=== PATIENT | female | born 1950 | race American Indian/Alaskan Native ===

== ENCOUNTER 2020-02-01 11:03 | Day surgery (SDC) | payer MEDICARE, OTHER ==
[~2020-02-01 11:03] MED LIST: Lactated Ringers 1,000 ML IV SCH; Lidocaine 2% 5 ML SDV ONE; Midazolam 1 MG/ML 2 ML SDV ONE; Propofol 200 MG/20 ML SDV ONE; Sodium Chloride 0.9% 10 ML SDV IV PRN; Sodium Chloride 0.9% 10 ML Syringe FLUSH PRN; Sodium Chloride 0.9% 2.5 ML Syringe FLUSH PRN; fentaNYL 100 MCG/2 ML SDV ONE
--- NOTE | 2020-02-01 13:18 | PCM.PREANE ---
Preanesthetic Assessment - Anesthesia/Transfusion/Family Hx Anesthesia History: Prior Anesthesia Without Reaction Family History of Anesthesia Reaction: No Transfusion History: No Prior Transfusion(s) - Review of Systems General: No Symptoms Pulmonary: No Symptoms Cardiovascular: No Symptoms Gastrointestinal: No Symptoms Neurological: No Symptoms Other: Reports: None - Physical Assessment NPO Status Date: 02/01/20 NPO Status Time: 08:30 Vital Signs: Last Vital Signs Temp 97.7 F 02/01/20 12:45 Pulse 93 02/01/20 12:45 Resp 16 02/01/20 12:45 BP 121/62 02/01/20 12:45 Pulse Ox 92 L 02/01/20 12:45 Height: 5 ft 4 in Weight: 56.245 kg ASA Class: 2 Mental Status: Alert & Oriented x3 Airway Class: Mallampati = 2 Dentition: Reports: Normal Dentition, Partial, Broken Tooth/Teeth, Missing Tooth/Teeth ROM/Head Extension: Full Lungs: Clear to Auscultation, Normal Respiratory Effort Cardiovascular: Regular Rate, Regular Rhythm - Lab Values: Laboratory Last Values SARS Virus RNA (PCR) NEGATIVE (NEGATIVE) 02/01/20 11:08 - Allergies Allergies/Adverse Reactions: Allergies Allergy/AdvReac Type Severity Reaction Status Date / Time Penicillins Allergy Hives Verified 01/26/20 14:41 - Blood Blood Available: No - Acknowledgements Anesthesia Type Planned: General Anesthesia (tiva) Pt an Appropriate Candidate for the Planned Anesthesia: Yes Alternatives and Risks of Anesthesia Discussed w Pt/Guardian: Yes Pt/Guardian Understands and Agrees with Anesthesia Plan: Yes PreAnesthesia Questionnaire HEENT History: Reports: Other (See Below) Other HEENT History: wears glasses, has upper partial removal denture Gastrointestinal History: Reports: Cholelithiasis, GERD, Helicobacter Pylori Musculoskeletal History: Reports: Fracture, Neck Pain, Chronic Other Musculoskeletal History: hx of fx wrist Neurological History: Reports: Vertigo, Other (See Below) Other Neuro History: hx of motion sickness Psychiatric History: Reports: Anxiety - Past Surgical History Head Surgeries/Procedures: Reports: None GI Surgical History: Reports: Cholecystectomy - SUBSTANCE USE Smoking Status *Q: Never Smoker Recreational Drug Use History: No - HOME MEDS Home Medications: Home Meds Lactobacillus Acidophilus [Probiotic] 1 cap PO DAILY 01/26/20 [History] Multivitamin 1 tab PO DAILY 01/26/20 [History] Omeprazole 20 mg PO DAILY 01/26/20 [History] - CURRENT (IN HOUSE) MEDS Current Meds: Current Medications Lactated Ringer's (Ringers, Lactated) 1,000 mls @ 125 mls/hr IV ASDIRECTED JÚNIOR Last Admin: 02/01/20 13:06 Dose: 125 mls/hr Documented by: Sodium Chloride (Saline Flush) 10 ml FLUSH ASDIRECTED PRN PRN Reason: Keep Vein Open Sodium Chloride (Saline Flush) 2.5 ml FLUSH ASDIRECTED PRN PRN Reason: Keep Vein Open Sodium Chloride (Saline Flush) 10 ml FLUSH ASDIRECTED PRN PRN Reason: Keep Vein Open Sodium Chloride (Saline Flush) 2.5 ml FLUSH ASDIRECTED PRN PRN Reason: Keep Vein Open Sodium Chloride (Normal Saline) 10 ml IV ASDIRECTED PRN PRN Reason: IV Use Discontinued Medications Fentanyl (Sublimaze) Confirm Administered Dose 100 mcg .ROUTE .STK-MED ONE Stop: 02/01/20 09:56 Lidocaine (Xylocaine-Mpf 2%) Confirm Administered Dose 5 ml .ROUTE .STK-MED ONE Stop: 02/01/20 09:56 Midazolam HCl (Versed 1 Mg/Ml) Confirm Administered Dose 2 mg .ROUTE .STK-MED ONE Stop: 02/01/20 09:56 Propofol (Diprivan 20 Ml) Confirm Administered Dose 400 mg .ROUTE .STK-MED ONE Stop: 02/01/20 09:56
[2020-02-01] MEDS ORDERED: Propofol 200 MG/20 ML SDV ONE (13:32)
--- NOTE | 2020-02-01 14:03 | PCM.OPNOTE ---
- General Post-Op/Procedure Note Date of Surgery/Procedure: 02/01/20 Operative Procedure(s): Diagnostic EGD and colonoscopy Findings: acute gastritis, ascending colon polyp x 3, transverse colon polyp x 2, sigmoid colon polyp x 1 Pre Op Diagnosis: Abdominal pain, history of H pylori infection, change in bowel habits Post-Op Diagnosis: acute gastritis, ascending colon polyp x 3, transverse colon polyp x 2, sigmoid colon polyp x 1 Anesthesia Technique: MEGAN Primary Surgeon: Bing Stanley Condition: Good
--- NOTE | 2020-02-01 14:14 | PCM.POSTAN ---
POST ANESTHESIA ASSESSMENT - MENTAL STATUS Mental Status: Alert, Oriented - VITAL SIGNS Vital Signs: Last Vital Signs Temp 97.0 F 02/01/20 13:53 Pulse 81 02/01/20 14:10 Resp 20 02/01/20 14:10 BP 102/55 L 02/01/20 14:10 Pulse Ox 97 02/01/20 14:10 - RESPIRATORY Respiratory Status: Respiratory Rate WNL, Airway Patent, O2 Saturation Stable - CARDIOVASCULAR CV Status: Pulse Rate WNL, Blood Pressure Stable - GASTROINTESTINAL GI Status: No Symptoms - POST OP HYDRATION Hydration Status: Adequate & Stable
--- NOTE | 2020-02-01 14:29 | PCM48HPAN ---
Post Anesthesia Note - EVALUATION WITHIN 48HRS OF ANESTHETIC Vital Signs in Normal Range: Yes Patient Participated in Evaluation: Yes Respiratory Function Stable: Yes Airway Patent: Yes Cardiovascular Function Stable: Yes Hydration Status Stable: Yes Pain Control Satisfactory: Yes Nausea and Vomiting Control Satisfactory: Yes Mental Status Recovered: Yes Vital Signs: Last Vital Signs Temp 97.0 F 02/01/20 13:53 Pulse 81 02/01/20 14:10 Resp 20 02/01/20 14:10 BP 102/55 L 02/01/20 14:10 Pulse Ox 97 02/01/20 14:10
--- NOTE | 2020-02-01 20:43 | OR ---
SURGEON: BING STANLEY MD DATE OF PROCEDURE: 02/01/2020 PREOPERATIVE DIAGNOSES: History of Helicobacter pylori, abdominal pain, change in bowel habits. POSTOPERATIVE DIAGNOSES: 1. Acute gastritis. 2. Ascending colon polyps x3. 3. Transverse colon polyps x2. 4. Sigmoid colon polyp x1. PROCEDURE PERFORMED: Diagnostic esophagogastroduodenoscopy and colonoscopy. PRIMARY SURGEON: Bing Stanley MD ANESTHESIA: MAC. INSTRUMENT USED: Olympus endoscope and colonoscope. EXTENT OF EXAM: To the second portion of duodenum, to the cecum. PREPARATION: Good. LIMITATIONS: None. INDICATIONS FOR EXAMINATION: The patient is a 70-year-old female who was recently diagnosed with H. pylori. She was given antibiotic courses two separate times, but did not perform them as instructed. The patient recently had a repeat stool antigen test that came back positive. She continues to have abdominal pain and has noted changes in her bowel habits. I explained the need for diagnostic EGD and colonoscopy. The patient and I discussed the procedure; expected perioperative course; and the risks including bleeding, infection, or damage to surrounding structures including perforation. She verbalized understanding and wishes to proceed. PROCEDURE IN DETAIL: The patient was brought into the endoscopy suite and placed in the left lateral decubitus position. A time-out was completed verifying the patient's name, age, date of , allergies, and procedure to be performed. Monitored anesthesia care was induced and continuous oxygen was provided via nasal cannula throughout the procedure. A bite block was placed in the patient's mouth. After adequate sedation was achieved, a well-lubricated endoscope was placed in the patient's mouth and advanced under direct visualization to the second portion of duodenum. This appeared normal and a photograph was taken. The scope was then fully withdrawn while examining the upper GI tract. The patient had no evidence of ulcers within the duodenum. There was some mild irritation at the level of the pylorus. Once the scope was brought into the stomach, I took a photograph of the pylorus and GE junction, which appeared structurally normal. The gastric mucosa appeared acutely and chronically inflamed. There was no evidence of ulceration or bleeding. Biopsies were taken of the gastric antrum, body, and fundus and sent for histologic review and H. pylori testing. The scope was brought into the distal esophagus. The Z-line appeared normal. A biopsy was taken of the distal esophageal mucosa 1 cm above the Z-line. The remainder of the esophagus appeared normal. The scope was removed and this portion of the procedure terminated. A digital rectal exam was performed. This exam was within normal limits. A well-lubricated colonoscope was inserted in the rectum and advanced under direct visualization to the level of the cecum. The cecum was identified by both visual and anatomic landmarks. A photograph was taken of the cecal cap as well as with the scope retroflexed within the cecum. The scope was then fully withdrawn while examining the color, texture, anatomy, and integrity of the mucosa from the cecum to the anal canal. The patient was found to have multiple small sessile polyps which were removed in piecemeal fashion using cold biopsy forceps. There were three ascending colon polyps, two transverse colon polyps, and one sigmoid colon polyp. The scope was then brought into the rectum and retroflexed to allow visualization of the anal canal opening. This appeared normal and a photograph was taken. The scope was then straightened out and fully withdrawn. The cecum to anus time was greater than 6 minutes. The patient tolerated the procedure well and was transferred to the PACU in stable condition. ENDOSCOPIC DIAGNOSES: 1. Acute gastritis. 2. Ascending colon polyps x3. 3. Transverse colon polyps x2. 4. Sigmoid colon polyp x1. RECOMMENDATIONS: I will increase the patient's PPI treatment to 40 mg of omeprazole once in the morning and once at night. I will await the biopsy results regarding H. pylori testing. If this is positive, I will work with the patient to find an antibiotic regimen that the patient will be able to adhere to and complete to hopefully provide eradication. Follow up in clinic in 2 weeks. MARY STEVENS /[id number] RUBEN
== END 2020-02-01 15:10 | disposition home or self-care (01) ==
LOC: MW.SDS 11:03
PROVIDERS: ATTEND Surgery
DX: D12.2 Benign neoplasm of ascending colon (principal); D12.3 Benign neoplasm of transverse colon; D12.5 Benign neoplasm of sigmoid colon; K29.00 Acute gastritis without bleeding; K29.50 Unspecified chronic gastritis without bleeding; K21.9 Gastro-esophageal reflux disease without esophagitis; F41.9 Anxiety disorder, unspecified; Z11.59 Encounter for screening for other viral diseases; Z88.0 Allergy status to penicillin; Z79.899 Other long term (current) drug therapy; Z86.19 Personal history of other infectious and parasitic diseases
CPT/HCPCS: 43239; 45380; J2001; J2704; J3010; J7120; U0002; 00813; 88305; 88312; J2250